=== PATIENT | male | born 1995 | race Caucasian/White ===

== ENCOUNTER → 2021-10-26 14:13 | Outpatient (BNVA) | payer OTHER, SELFPAY | PROVIDERS: PCP Internal Medicine; Visit Provider Internal Medicine | DX: S46.312A Strain of muscle, fascia and tendon of triceps, left arm, initial encounter (principal); S53.402A Unspecified sprain of left elbow, initial encounter; V83.5XXA Driver of special industrial vehicle injured in nontraffic accident, initial encounter | CPT/HCPCS: 99203 ==

== ENCOUNTER → 2021-11-01 13:51 | Outpatient (BNVA) | payer OTHER, SELFPAY | PROVIDERS: PCP Internal Medicine; Visit Provider Physician Assistant | DX: S53.402A Unspecified sprain of left elbow, initial encounter (principal); S46.312A Strain of muscle, fascia and tendon of triceps, left arm, initial encounter; V83.5XXA Driver of special industrial vehicle injured in nontraffic accident, initial encounter | CPT/HCPCS: 99213 ==

== ENCOUNTER → 2021-11-15 15:40 | Outpatient (BNVA) | payer OTHER, SELFPAY | PROVIDERS: PCP Internal Medicine; Visit Provider Physician Assistant | DX: S53.402D Unspecified sprain of left elbow, subsequent encounter (principal); S46.312D Strain of muscle, fascia and tendon of triceps, left arm, subsequent encounter; V83.5XXD Driver of special industrial vehicle injured in nontraffic accident, subsequent encounter | CPT/HCPCS: 99214 ==

== ENCOUNTER → 2021-12-08 08:13 | Outpatient (BNVA) | payer OTHER, SELFPAY | PROVIDERS: PCP Internal Medicine; Visit Provider Internal Medicine | DX: S53.402D Unspecified sprain of left elbow, subsequent encounter (principal); S46.312D Strain of muscle, fascia and tendon of triceps, left arm, subsequent encounter; X58.XXXD Exposure to other specified factors, subsequent encounter | CPT/HCPCS: 99213 ==

== ENCOUNTER → 2021-12-25 08:28 | Outpatient (BNVA) | payer OTHER, SELFPAY | PROVIDERS: PCP Internal Medicine; Visit Provider Internal Medicine | DX: S53.402D Unspecified sprain of left elbow, subsequent encounter (principal); S46.312D Strain of muscle, fascia and tendon of triceps, left arm, subsequent encounter; V83.5XXD Driver of special industrial vehicle injured in nontraffic accident, subsequent encounter | CPT/HCPCS: 99213 ==

== ENCOUNTER → 2022-01-11 09:18 | Outpatient (BNVA) | payer OTHER, SELFPAY | PROVIDERS: PCP Internal Medicine; Visit Provider Internal Medicine | DX: S53.402D Unspecified sprain of left elbow, subsequent encounter (principal); S46.312D Strain of muscle, fascia and tendon of triceps, left arm, subsequent encounter; V83.5XXD Driver of special industrial vehicle injured in nontraffic accident, subsequent encounter | CPT/HCPCS: 99213 ==

== ENCOUNTER → 2022-01-25 08:46 | Outpatient (BNVA) | payer OTHER, SELFPAY | PROVIDERS: PCP Internal Medicine; Visit Provider Internal Medicine | DX: S46.312D Strain of muscle, fascia and tendon of triceps, left arm, subsequent encounter (principal); S53.402D Unspecified sprain of left elbow, subsequent encounter; V83.5XXD Driver of special industrial vehicle injured in nontraffic accident, subsequent encounter | CPT/HCPCS: 99213 ==

== ENCOUNTER → 2022-03-01 14:45 | Outpatient (BNVA) | payer OTHER, SELFPAY | PROVIDERS: PCP Internal Medicine; Visit Provider Internal Medicine | DX: S46.312D Strain of muscle, fascia and tendon of triceps, left arm, subsequent encounter (principal); V83.5XXD Driver of special industrial vehicle injured in nontraffic accident, subsequent encounter | CPT/HCPCS: 99213 ==

== ENCOUNTER → 2022-03-26 07:36 | Outpatient (BNVA) | payer OTHER, SELFPAY | PROVIDERS: PCP Internal Medicine; Visit Provider Internal Medicine | DX: M79.602 Pain in left arm (principal) | CPT/HCPCS: 99213 ==